=== PATIENT | female | born 1975 | race Caucasian/White ===

== ENCOUNTER 2018-06-13 12:41 | Emergency (ER) | payer BC ==
[2018-06-13 13:18] VITALS: BP 115/56
[2018-06-13 14:11] LABS: Influenza A Molecular NEGATIVE (Negative); Influenza B Molecular NEGATIVE (Negative)
--- NOTE | 2018-06-13 14:19 | UC ---
FLU HPI - HPI Summary HPI Summary: Pt c/o sudden onset of right side ear pain, sinus pressure, nasal congestion, MCMAHON , PND, and cough. - History of Current Complaint Chief Complaint: UCGeneralIllness Stated Complaint: MCMAHON,SINUS COMPLAINT,ACHY,NAUSEA Time Seen by Provider: 06/13/18 13:38 Hx Obtained From: Patient Hx Last Menstrual Period: 05/2018 ?: No Onset/Duration: Sudden Onset, Lasting Days, Still Present Severity Currently: Mild Severity Initially: Mild Pain Intensity: 5 Associated Signs & Symptoms: Positive: Myalgia, Cough, Nasal Congestion, Headache Related Hx: Possible Flu/Infectious Exposure - Risk Factors Influenza Risk Factors: Negative - Allergy/Home Medications Allergies/Adverse Reactions: Allergies Allergy/AdvReac Type Severity Reaction Status Date / Time latex Allergy Rash And Verified 06/13/18 13:13 Itching macadamia nut oil Allergy Difficulty Verified 06/13/18 13:13 Breathing/Wheezing PMH/Surg Hx/FS Hx/Imm Hx Previously Healthy: Yes - Surgical History Surgical History: Yes Surgery Procedure, Year, and Place: 1994 [facility] 2007 C SECTION [facility]. GALLBLADDER 2011 [facility]. L wrist surgery - Family History Known Family History: Positive: Hypertension - Social History Occupation: Employed Full-time Lives: With Family Alcohol Use: Occasionally Substance Use Type: None Smoking Status (MU): Light Every Day Tobacco Smoker Amount Used/How Often: 1 packs per week Length of Time of Smoking/Using Tobacco: started ~ age 20 Have You Smoked in the Last Year: Yes - Immunization History Most Recent Influenza Vaccination: Fall 2014 Review of Systems All Other Systems Reviewed And Are Negative: Yes Constitutional: Positive: Chills, Fatigue Skin: Positive: Negative Eyes: Positive: Negative ENT: Positive: Sore Throat, Ear Ache, Nasal Discharge, Sinus Congestion, Sinus Pain/Tenderness Respiratory: Positive: Cough Cardiovascular: Positive: Negative Gastrointestinal: Positive: Negative Genitourinary: Positive: Negative Motor: Positive: Negative Neurovascular: Positive: Negative Musculoskeletal: Positive: Arthralgia Neurological: Positive: Headache Psychological: Positive: Negative Is Patient Immunocompromised?: No Physical Exam Triage Information Reviewed: Yes Appearance: Well-Appearing Vital Signs: Initial Vital Signs Temp 99.4 F 06/13/18 13:13 Pulse 69 06/13/18 13:13 Resp 15 06/13/18 13:13 BP 115/56 06/13/18 13:13 Pulse Ox 100 06/13/18 13:13 Vital Signs Reviewed: Yes Eye Exam: Normal ENT: Positive: Nasal congestion, TM bulging - right TM, Sinus tenderness Dental Exam: Normal Neck exam: Normal Respiratory Exam: Normal Cardiovascular Exam: Normal Musculoskeletal Exam: Normal Neurological Exam: Normal Psychological Exam: Normal Skin Exam: Normal Flu Course/Dx - Differential Dx/Diagnosis Differential Diagnosis/HQI/PQRI: Influenza, Upper Respiratory Infection Provider Diagnosis: Viral syndrome Discharge - Sign-Out/Discharge Documenting (check all that apply): Patient Departure All imaging exams completed and their final reports reviewed: No Studies - Discharge Plan Condition: Stable Disposition: HOME Prescriptions: Guaifenesin/Pseudoephedrne HCl [Mucinex D ER 600-60 mg Tablet] 1 each PO Q12H # 14 tab.er.12h Mometasone Furoate [Nasonex] 50 mcg NA DAILY 7 Days #1 bottle Patient Education Materials: Viral Syndrome (ED) Forms: *Work Release Referrals: Latonya Mcbride MD [Primary Care Provider] - If Needed - Billing Disposition and Condition Condition: STABLE Disposition: Home
== END 2018-06-13 14:29 | disposition home or self-care (01) ==
LOC: UCCORT 12:41
DX: B34.9 Viral infection, unspecified (principal); H92.01 Otalgia, right ear; J34.89 Other specified disorders of nose and nasal sinuses; R09.81 Nasal congestion; R09.82 Postnasal drip; R05 Cough; F17.210 Nicotine dependence, cigarettes, uncomplicated; Z91.040 Latex allergy status; Z91.018 Allergy to other foods
CPT/HCPCS: 99212; G0463

== ENCOUNTER 2018-06-29 19:07 | Emergency (ER) | payer BC ==
[2018-06-29 19:52] VITALS: BP 117/60
--- NOTE | 2018-06-29 20:17 | UC ---
Skin Complaint HPI - HPI Summary HPI Summary: Pt presents with c/o generalized body aches and painful rash to right hip. Pt states that she is under "a lot of stress" and has had a right hip ache and : just not feeling right". - History of Current Complaint Chief Complaint: UCSkin Time Seen by Provider: 06/29/18 19:49 Stated Complaint: RASH Hx Obtained From: Patient Hx Last Menstrual Period: 05/23/18 ?: No Onset/Duration: Gradual Onset, Lasting Days, Still Present Skin Exposure Onset/Duration: Days Ago Timing: Constant Onset Severity: Mild Current Severity: Mild Pain Intensity: 2 Location: Discrete - right hip Character: Redness, Raised, Painful Aggravating Factor(s): Touch Alleviating Factor(s): Unknown Associated Signs & Symptoms: Positive: Rash - Allergy/Home Medications Allergies/Adverse Reactions: Allergies Allergy/AdvReac Type Severity Reaction Status Date / Time latex Allergy Rash And Verified 06/29/18 19:44 Itching macadamia nut oil Allergy Difficulty Verified 06/29/18 19:44 Breathing/Wheezing Home Medications: Home Medications Levonorgestrel (Iud) [Mirena IUD] 20 mcg IU ONCE 06/29/18 [History Confirmed ] PMH/Surg Hx/FS Hx/Imm Hx Previously Healthy: Yes - Surgical History Surgical History: Yes Surgery Procedure, Year, and Place: 1994 [facility]. 2007 C SECTION [facility]. GALLBLADDER 2011 [facility]. L wrist surgery - Family History Known Family History: Positive: Hypertension - Social History Occupation: Employed Full-time Alcohol Use: Occasionally Substance Use Type: None Smoking Status (MU): Light Every Day Tobacco Smoker Amount Used/How Often: 1 packs per week Length of Time of Smoking/Using Tobacco: started ~ age 20 Have You Smoked in the Last Year: Yes - Immunization History Most Recent Influenza Vaccination: Fall 2014 Review of Systems All Other Systems Reviewed And Are Negative: Yes Constitutional: Positive: Negative Skin: Positive: Rash Eyes: Positive: Negative ENT: Positive: Negative Respiratory: Positive: Negative Cardiovascular: Positive: Negative Gastrointestinal: Positive: Negative Genitourinary: Positive: Negative Motor: Positive: Negative Neurovascular: Positive: Negative Musculoskeletal: Positive: Negative Neurological: Positive: Negative Psychological: Positive: Negative Is Patient Immunocompromised?: No Physical Exam Triage Information Reviewed: Yes Appearance: Well-Appearing Vital Signs: Initial Vital Signs Temp 99.3 F 03/22/19 19:46 Pulse 87 06/29/18 19:46 Resp 22 06/29/18 19:46 BP 117/60 06/29/18 19:46 Pulse Ox 98 06/29/18 19:46 Vital Signs Reviewed: Yes Eye Exam: Normal ENT Exam: Normal Dental Exam: Normal Neck exam: Normal Respiratory Exam: Normal Cardiovascular Exam: Normal Musculoskeletal Exam: Normal Neurological Exam: Normal Psychological Exam: Normal Skin: Positive: Rashes - right hip erythematous, slightly raised with vessicles Course/Dx - Differential Diagnoses - Skin Complaint Differential Diagnoses: Cellulitis, Urticaria, Varicella Zoster - Diagnoses Provider Diagnosis: Shingles outbreak Discharge - Sign-Out/Discharge Documenting (check all that apply): Patient Departure All imaging exams completed and their final reports reviewed: No Studies - Discharge Plan Condition: Stable Disposition: HOME Prescriptions: predniSONE TAB* [Deltasone 20 MG TAB*] 20 mg PO DAILY #4 tab ValACYclovir (*) [Valtrex 1 GM(*)] 1 gm PO Q12H #14 tab Patient Education Materials: Shingles (ED) Referrals: [facility] [Outside] - If Needed Latonya Mcbride MD [Primary Care Provider] - - Billing Disposition and Condition Condition: STABLE Disposition: Home
== END 2018-06-29 20:27 | disposition home or self-care (01) ==
LOC: UCCORT 19:07
DX: B02.9 Zoster without complications (principal); F17.210 Nicotine dependence, cigarettes, uncomplicated; Z91.018 Allergy to other foods; Z91.040 Latex allergy status
CPT/HCPCS: 99212; G0463